=== PATIENT | male | born 1990 | race African-American/Black ===

== ENCOUNTER 2021-10-12 13:50 | Emergency (ER) | payer MEDICAID ==
[~2021-10-12] VITALS: Ht 182.9 cm; Wt 95.9 kg
[2021-10-12 13:51] VITALS: BP 149/80
[2021-10-12] MEDS ORDERED: DEXAMETHASONE SOD PHOS 4 MG/ML 5 ML VIAL IM ONE (14:15)
[2021-10-12 14:24] LABS: COVID AG,FIA SOURCE NASAL SWAB
== END 2021-10-12 15:19 | disposition home or self-care (01) ==
LOC: EMS 13:50
DX: J06.0 Acute laryngopharyngitis (principal); Z20.822 Contact with and (suspected) exposure to COVID-19; J35.1 Hypertrophy of tonsils; F10.20 Alcohol dependence, uncomplicated
CPT/HCPCS: 87426; 87430; 96372; 99283; J1100